=== PATIENT | male | born 1990 | race Caucasian/White ===

== ENCOUNTER 2022-05-06 07:02 | Inpatient (IN) ==
[2022-05-06] MEDS ORDERED: chlordiazePOXIDE HCl 25 MG CAP PO ONE (07:15)
[2022-05-06] MEDS ORDERED: MULTI-VITAMIN INFUSION 10 ML, THIAMINE HCL 100 MG, FOLIC ACID 1 MG in SODIUM CHLORIDE 0... IV ONE (07:15)
[2022-05-06] MEDS ORDERED: SODIUM CHLORIDE 0.9% 1000ML 500 ML IV ONE (07:17)
[2022-05-06] MEDS ORDERED: Ativan IV Alcohol Withdrawal--Active Protocol IV PRN ×2 (07:17→09:54)
[2022-05-06] MEDS ORDERED: LORazepam 2 MG/1 ML VIAL IV PRN ×7 (07:17→09:54)
--- NOTE | 2022-05-06 07:22 | Emergency Department Note ---
Impression & Plan Alcohol withdrawal, HTN (hypertension) ED Provider Note NAME: LICO ROSENBAUM AGE: 31 SEX: M : 1990 ARRIVES VIA: Walk-In INFORMANT: Patient, ED PROVIDER(S): Killian Marrero MD CHIEF COMPLAINT: Alcohol withdrawal, shakiness MEDICAL DECISION MAKING: Patient did present due to concern for tremulousness in the setting of recent alcohol cessation. The patient was ordered IV Valium 5 mg with a second dose to give if he still had tremors. CIWA protocol was initiated banana bag ordered IV fluids ordered in addition to blood work. An IV was established. Patient did have improvement after 10 mg of IV Valium. CIWA protocol still in progress. The patient would like to quit drinking. His buttock shows a normal white count H&H and platelet count kidney function is unremarkable with normal coags. Mild elevation in AST and ALT of 48 and 64 respectively. Vitamin B12 within normal range and folate greater than 22. COVID-negative. I did speak with the on-call hospitalist service CAROL Moss and the patient was admitted by Dr. Preciado. Critical Care: I have personally spent 45 minutes of critical care time in direct management of this patient. This includes bedside care, interpretation of diagnostic studies, and testing, discussion with consultants, patient, and family members, and other require inpatient management activities. This 45 minutes is in excess of all separately billable procedures. Prior /Outside records reviewed: None Differential diagnosis: Alcohol intoxication, toxicologic, infection, hypoglycemia, electrolyte abnormalities, cardiac sources, intracerebral event, neurologic, trauma, as well as other pathologies. Diagnostics, as interpreted by me: ECG: None Cardiac monitoring: An order was placed for continuous cardiac monitoring. The monitor shows a rate of 105 with tachycardic and regular rhythm. Patient was placed on pulse oximetry Medical decision rules: None Imaging studies: See below HPI: Patient presents due to concern for increasing shakiness in the setting of recent alcohol cessation. The patient states that he was drinking 15 beers a day And was doing this for almost 5 days. The patient's last drink was 3 days prior. Patient states he has had associated hallucinations but no reported seizures. Patient does repeatedly binge drink. The patient states that he gone through detox once before back in September 2021. Patient denies any chest pains or shortness of breath but does complain of feeling anxious and tremulous. Patient does use tobacco and marijuana but no other drugs. Patient would like to quit drinking. Patient denies any falls or trauma. Patient is a nausea but without vomiting. PAST MEDICAL HISTORY: See Below PAST SURGICAL HISTORY: See Below SOCIAL HISTORY: See Below HOME MEDICATIONS: See Below ALLERGIES: See Below VITALS: See Below PHYSICAL EXAMINATION: GENERAL: Anxious in appearance, wearing a mask EYE EXAM: Normal conjunctiva. PERRL, no anisocoria and EOM's grossly intact w/o pain. NECK: Supple, no nuchal rigidity, no adenopathy, non-tender. No signs of meningismus. FROM of the neck with good chin to chest and neck extension. No stridor. LUNGS: Clear to auscultation. Normal chest wall mechanics. HEART: Tachycardic and regular, no MRG. ABDOMEN: Abdomen soft, non-tender, normo-active bowel sounds, no masses, no rebound or guarding. BACK: No CVA TTP. SKIN: No rashes and no bruising. UPPER EXTREMITIES: Upper extremities are grossly normal. Bilateral upper extremity tremors noted LOWER EXTREMITIES: Grossly normal, no edema. NEURO EXAM: A&O x3, cranial nerves II-XII grossly intact, normal speech, moves all 4 extremities. Past Med/Surg History Medical History Alcohol abuse HTN (hypertension) Surgical History Hx of tonsillectomy Social History Smoking Status: Former smoker Tobacco Type: Cigarettes Hx Alcohol Use: Yes Hx Substance Use: No Preferred Language: Latvian Feels Safe at Home: Yes Allergies Allergies Allergy/AdvReac Type Severity Reaction Status Date / Time No Known Allergies Allergy Unverified 05/15/14 12:12 Home Meds Home Medications Medication Instructions Recorded Confirmed No Known Home Medications 05/06/22 05/06/22 Results & Data (ED) Vital Signs Vital Signs - 24 hr 05/06/22 07:06 05/06/22 07:09 05/06/22 07:49 Temperature 36.1 C L Temperature Source Temporal Artery Scan Pulse Rate 102 H 73 Pulse Rate [Apical] 70 Pulse Rate from SpO2 Sensor Pulse Rhythm Regular Pulse Rhythm [Apical] Regular Respiratory Rate 36 H 30 H 16 Respiratory Effort / Characteristics Labored Blood Pressure 168/120 H Blood Pressure [Left Arm] 159/120 H Blood Pressure Mean 136 Blood Pressure Mean [Left Arm] 133 Pulse Oximetry 95 95 Oxygen Delivery Method Room Air Room Air Sepsis Recent Fever Within 48 Hours No Sepsis New/Unexplained Change in Mental Status N/A Sepsis Action Taken by Nursing No Action Required 05/06/22 07:30 05/06/22 07:44 05/06/22 07:45 Temperature Temperature Source Pulse Rate 83 72 71 Pulse Rate [Apical] Pulse Rate from SpO2 Sensor 81 72 71 Pulse Rhythm Pulse Rhythm [Apical] Respiratory Rate 18 24 18 Respiratory Effort / Characteristics Blood Pressure 147/115 H 154/121 H 159/120 H Blood Pressure [Left Arm] Blood Pressure Mean 125 132 133 Blood Pressure Mean [Left Arm] Pulse Oximetry 91 95 94 Oxygen Delivery Method Room Air Room Air Room Air Sepsis Recent Fever Within 48 Hours Sepsis New/Unexplained Change in Mental Status Sepsis Action Taken by Nursing 05/06/22 08:00 05/06/22 08:15 Temperature Temperature Source Pulse Rate 67 67 Pulse Rate [Apical] Pulse Rate from SpO2 Sensor 69 68 Pulse Rhythm Pulse Rhythm [Apical] Respiratory Rate 17 22 Respiratory Effort / Characteristics Blood Pressure 145/108 H 141/113 H Blood Pressure [Left Arm] Blood Pressure Mean 120 122 Blood Pressure Mean [Left Arm] Pulse Oximetry 94 95 Oxygen Delivery Method Room Air Room Air Sepsis Recent Fever Within 48 Hours Sepsis New/Unexplained Change in Mental Status Sepsis Action Taken by Intermediate Medications Current Medication List: was personally reviewed by me Laboratory Data Attestation: I reviewed the patient's lab results. 05/06/22 07:15 05/06/22 07:15 Lab Results 05/06/22 05/06/22 05/06/22 Range/Units 07:15 07:15 07:15 WBC 9.49 (4.8-10.8) K/ul RBC 5.04 (4.70-6.10) M/uL Hgb 16.6 (14.0-18.0) g/dl Hct 44.0 (42.0-52.0) % MCV 87.3 (80.0-100.0) fL MCH 32.9 (25.0-34.0) pg MCHC 37.7 H (32.0-36.0) g/dL RDW Std Deviation 36.3 L (36.4-46.3) fL RDW Coeff of Cabrera 11.4 L (11.5-14.5) % Plt Count 226 (130-400) K/uL MPV 10.0 (9.4-12.4) fL Immature Gran % (Auto) 0.3 % Neut % (Auto) 53.6 % Lymph % (Auto) 34.7 % [place] % (Auto) 9.4 % Eos % (Auto) 1.3 % Baso % (Auto) 0.7 % Neut # (Auto) 5.09 (1.40-6.50) K/uL Lymph # (Auto) 3.29 (1.2-3.4) K/uL [place] # (Auto) 0.89 H (0.11-0.59) K/uL Eos # (Auto) 0.12 (0-0.50) K/uL Baso # (Auto) 0.07 (0-0.2) K/uL Immature Gran # (Auto) 0.03 (0.01-0.20) K/uL PT (9.0-12.0) Seconds INR (0.9-1.1) APTT (21.0-31.0) Seconds PTT Ratio Sodium 140 (136-145) mmol/L Potassium 3.5 (3.5-5.1) mmol/L Chloride 103 (98-107) mmol/L Carbon Dioxide 28 (21-32) mmol/L Anion Gap 9 (3-11) BUN 17 (6-23) mg/dl Creatinine 1.21 (0.6-1.4) mg/dl Est Cr Clr Drug Dosing 104.8 ml/min Est GFR ( Amer) 92.6 ml/min Est GFR (Non-Af Amer) 79.9 ml/min BUN/Creatinine Ratio 14.0 (10-20) Glucose 96 (70-99(Fasting)) mg/dl Calcium 9.5 (8.5-10.1) mg/dl Total Bilirubin 0.8 (0.2-1.0) mg/dl AST 48 H (13-39) U/L ALT 64 H (7-52) U/L Alkaline Phosphatase 49 (34-104) U/L Total Protein 8.2 (6.0-8.3) gm/dl Albumin 4.9 (3.4-5.0) gm/dl Globulin 3.3 (2.5-4.0) gm/dl Albumin/Globulin Ratio 1.5 (0.9-2) Vitamin B12 519 (180-914) pg/ml Folate > 22.30 (>5.38) ng/ml 05/06/22 Range/Units 07:15 WBC (4.8-10.8) K/ul RBC (4.70-6.10) M/uL Hgb (14.0-18.0) g/dl Hct (42.0-52.0) % MCV (80.0-100.0) fL MCH (25.0-34.0) pg MCHC (32.0-36.0) g/dL RDW Std Deviation (36.4-46.3) fL RDW Coeff of Cabrera (11.5-14.5) % Plt Count (130-400) K/uL MPV (9.4-12.4) fL Immature Gran % (Auto) % Neut % (Auto) % Lymph % (Auto) % [place] % (Auto) % Eos % (Auto) % Baso % (Auto) % Neut # (Auto) (1.40-6.50) K/uL Lymph # (Auto) (1.2-3.4) K/uL [place] # (Auto) (0.11-0.59) K/uL Eos # (Auto) (0-0.50) K/uL Baso # (Auto) (0-0.2) K/uL Immature Gran # (Auto) (0.01-0.20) K/uL PT 10.6 (9.0-12.0) Seconds INR 1.0 (0.9-1.1) APTT 26.0 (21.0-31.0) Seconds PTT Ratio 0.9 Sodium (136-145) mmol/L Potassium (3.5-5.1) mmol/L Chloride (98-107) mmol/L Carbon Dioxide (21-32) mmol/L Anion Gap (3-11) BUN (6-23) mg/dl Creatinine (0.6-1.4) mg/dl Est Cr Clr Drug Dosing ml/min Est GFR ( Amer) ml/min Est GFR (Non-Af Amer) ml/min BUN/Creatinine Ratio (10-20) Glucose (70-99(Fasting)) mg/dl Calcium (8.5-10.1) mg/dl Total Bilirubin (0.2-1.0) mg/dl AST (13-39) U/L ALT (7-52) U/L Alkaline Phosphatase (34-104) U/L Total Protein (6.0-8.3) gm/dl Albumin (3.4-5.0) gm/dl Globulin (2.5-4.0) gm/dl Albumin/Globulin Ratio (0.9-2) Vitamin B12 (180-914) pg/ml Folate (>5.38) ng/ml Administered Medications Discontinued Medications Chlordiazepoxide HCl (Chlordiazepoxide Hcl 25 Mg Cap) 50 mg PO NOW ONE Stop: 05/06/22 07:16 Last Admin: 05/06/22 07:25 Dose: 50 mg Documented By: MAHNAZ Diazepam (Diazepam 5 Mg/Ml Inj 10ml Vial) 5 mg IV NOW STA Stop: 05/06/22 07:16 Last Admin: 05/06/22 07:18 Dose: 5 mg Documented By: MAHNAZ Diazepam (Diazepam 5 Mg/Ml Inj 10ml Vial) 5 mg IV ONE PRN PRN Reason: Alcohol Withdrawal Stop: 06/05/22 07:14 Last Admin: 05/06/22 07:23 Dose: 5 mg Documented By: MAHNAZ Diazepam (Diazepam 5 Mg/Ml Inj 10ml Vial) Confirm Administered Dose 5 mg .ROUTE .STK-MED ONE Stop: 05/06/22 07:17 Last Admin: 05/06/22 07:19 Dose: Not Given Documented By: MAHNAZ Multivitamins 10 ml/ Thiamine HCl 100 mg/ Folic Acid 1 mg/Sodium Chloride 1,011.2 mls @ 500 mls/hr IV .Q2H2M ONE Stop: 05/06/22 09:16 Last Admin: 05/06/22 07:52 Dose: 500 mls/hr Documented By: GEETHA Sodium Chloride (Nss 1000ml) 500 mls @ 999 mls/hr IV .Q31M ONE Stop: 05/06/22 07:47 Last Infusion: 05/06/22 07:52 Dose: 0 mls/hr Documented By: Admin: 05/06/22 07:25 Dose: 999 mls/hr Documented By: OR Discharge Plan Visit Data Chief Complaint: Alcohol Withdrawal Stated Complaint: GOING THROUGH WITHDRAWL,SHAKES,HALLUCINATIONS ED Provider: Killian Marrero Discharge Problem: Alcohol withdrawal, HTN (hypertension) Patient Disposition: Admitted As Inpatient Discharge Instructions Interventions: ED Discharge Assessment Last Done: 05/06/22 09:55
[2022-05-06 07:52] LABS: Basophils # (auto) 0.07 K/uL (0-0.2); Basophils % (auto) 0.7 %; Eosinophils # (auto) 0.12 K/uL (0-0.50); Eosinophils % (auto) 1.3 %; Hemoglobin 16.6 g/dl (14.0-18.0); Immature Granulocytes # (auto) 0.03 K/uL (0.01-0.20); Immature Granulocytes % (auto) 0.3 %; Lymphocytes # (auto) 3.29 K/uL (1.2-3.4); Lymphocytes % (auto) 34.7 %; Mean Corpuscular Hemoglobin 32.9 pg (25.0-34.0); Mean Corpuscular Hgb Conc 37.7 g/dL (32.0-36.0); Mean Corpuscular Volume 87.3 fL (80.0-100.0); Monocytes # (auto) 0.89 K/uL (0.11-0.59); Monocytes % (auto) 9.4 %; Neutrophils # (auto) 5.09 K/uL (1.40-6.50); Neutrophils % (auto) 53.6 %; Platelet Count 226 K/uL (130-400); RDW Coefficient of Variation 11.4 % (11.5-14.5); RDW Standard Deviation 36.3 fL (36.4-46.3); Red Blood Count 5.04 M/uL (4.70-6.10); White Blood Count 9.49 K/ul (4.8-10.8)
[2022-05-06 07:57] LABS: Albumin Globulin Ratio 1.5 (0.9-2); Albumin Level 4.9 gm/dl (3.4-5.0); Bilirubin,Total 0.8 mg/dl (0.2-1.0); Calcium 9.5 mg/dl (8.5-10.1); Creatinine Clr Calc Pharmacy 104.8 ml/min; Est GFR (African American) 92.6 ml/min; Est GFR (Non-African American) 79.9 ml/min; Globulin 3.3 gm/dl (2.5-4.0); Potassium 3.5 mmol/L (3.5-5.1); Total Protein 8.2 gm/dl (6.0-8.3)
[2022-05-06 08:10] LABS: Partial Thromboplastin Ratio 0.9; Prothrombin Time 10.6 Seconds (9.0-12.0)
[2022-05-06 08:20] LABS: Vitamin B12 519 pg/ml (180-914)
--- NOTE | 2022-05-06 08:51 | History & Physical Report ---
Date of Service May 06, 2022 Assessment & Plan (1) Alcohol withdrawal: Plan: Admit to telemetry Patient presenting from home with reports of tremors and hallucinations. Patient reports a longstanding history of binge drinking. Patient reports he will drink 15 beers/day for 3-5 days in a row and then quit for about one week. Patient reports last binge ended 3 days ago. Upon arrival to the ED, patient was tremulous. Received p.o. Librium and IV Valium with improvement in symptoms. Also received banana bag. Will continue with p.o. thiamine and folic acid from tomorrow. Alcohol withdrawal protocol with gabapentin and as needed Ativan Patient requesting resources for outpatient rehab (2) HTN (hypertension): Plan: Patient reports a history of hypertension, being on metoprolol in the past however it has been greater than 1 year Diastolic BP elevated today, likely secondary to alcohol withdrawal Continue to monitor, provide antihypertensive if needed DVT PROPHYLAXIS SCDs History of Present Illness Chief Complaint: Tremors, Hallucinations Primary Care Provider: NO PCP 31 year old male with PMH HTN (no longer on medication), alcohol abuse, and other problems listed below who presents to the ED for evaluation of tremors and hallucinations. Patient reports a long standing history of binge drinking. Patient reports he will drink 15 beers/day for 3-5 days in a row and then quit for about one week. Patient reports last binge ended 3 days ago. Patient reports he woke up around 5am and was very tremulous and having hallucinations. He then presented to the ED for further evaluation. Patient reports experiencing nausea and vomiting last week while trying to cut back on the drinking. He denies abdominal pain. No chest pain, shortness of breath, or palpitations. Denies lightheadedness, dizziness, diaphoresis, and syncopal events. No other recent illnesses, fever, or chills. Denies urinary symptoms. In the ED, patient received Librium, IV Valium, and banana bag. Patient has had resolution of his symptoms. Allergies Allergy/AdvReac Type Severity Reaction Status Date / Time No Known Allergies Allergy Unverified 05/15/14 12:12 Home Medications Medication Instructions Recorded Confirmed Type No Known Home Medications 05/06/22 05/06/22 History Past Med/Surg History Medical History Alcohol abuse HTN (hypertension) Surgical History Hx of tonsillectomy Social History Smoking Status: Former smoker Tobacco Type: Cigarettes Smoking End Date: 2021; Hx Alcohol Use: Yes Alcohol type: beer Hx Substance Use: No Preferred Language: [place] Communication Ability: Effective Dental Technologist Required: No Beliefs That Will Affect Care: None Current Living Situation: Significant Other Other Information That Helps Us Care for You: No Feels Safe at Home: Yes Safety Concerns: Feels Safe At This Time Assistive Devices: None Review of Systems Review of Systems: ROS per HPI, all other systems reviewed and negative Physical Exam Constitutional: WD/WN, vitals as above Eyes: PERRL, conjunctivae normal, anicteric sclerae ENMT: external ear and nose normal, oropharynx normal Respiratory: normal respiratory effort, lungs clear to auscultation Cardiovascular: Rate/Rhythm: regular rate and regular rhythm Vessels: normal peripheral pulses Extremities: no edema Gastrointestinal (Abdomen): normal bowel sounds, soft, nontender, no hepatosplenomegaly Musculoskeletal: no cyanosis or clubbing, extremities motor strength 5/5 Skin: no rashes, warm and dry Neurologic: PERRL, EOMI, accommodation nl, no face palsy, no dysarthria Motor/Sensory: no tremor Psychiatric: Orientation: alert and oriented x 3 Affect: + flat affect Results & Data Results & Data ([place]) Vital Signs (Past 12 Hours) Vital Signs Temp Pulse Pulse Resp BP BP Pulse Ox 05/06/22 07:45 71 18 159/120 H 94 05/06/22 07:44 72 24 154/121 H 95 05/06/22 07:30 83 18 147/115 H 91 05/06/22 07:49 70 16 159/120 H 95 05/06/22 07:09 73 30 H 95 05/06/22 07:06 36.1 C L 102 H 36 H 168/120 H O2 Del Method 05/06/22 07:45 Room Air 05/06/22 07:44 Room Air 05/06/22 07:30 Room Air 05/06/22 07:49 Room Air 05/06/22 07:09 Room Air 05/06/22 07:06 Laboratory Results Short CBC 05/06/22 Range/Units 07:15 WBC 9.49 (4.8-10.8) K/ul Hgb 16.6 (14.0-18.0) g/dl Hct 44.0 (42.0-52.0) % Plt Count 226 (130-400) K/uL BMP 05/06/22 07:15 Sodium 140 Potassium 3.5 Chloride 103 Carbon Dioxide 28 BUN 17 Creatinine 1.21 Glucose 96 Calcium 9.5 Liver Function 05/06/22 Range/Units 07:15 Total Bilirubin 0.8 (0.2-1.0) mg/dl AST 48 H (13-39) U/L ALT 64 H (7-52) U/L Alkaline Phosphatase 49 (34-104) U/L Albumin 4.9 (3.4-5.0) gm/dl Code Status & VTE Plan VTE Prophylaxis Plan VTE Prophylaxis will be ordered: Yes Supervising Physician Co-Signing Physician Notes Patient seen and examined independently. Chart reviewed. Case discussed with FRANCISCO. Agree with plan above
[2022-05-06] MEDS ORDERED: GABAPENTIN 1200MG ALCOHOL WITHDRAWAL LOAD PO STA (09:54)
[2022-05-06] MEDS ORDERED: ACETAMINOPHEN 325 MG TAB PO PRN (09:54)
[2022-05-06] MEDS ORDERED: GABAPENTIN 600 MG TAB PO ONE (09:54)
[2022-05-06] MEDS: SODIUM CHLORIDE 0.9% 1000ML 1,000 ML IV SCH ×2 (11:45→19:44)
[2022-05-06] MEDS: GABAPENTIN 600 MG TAB PO SCH ×2 (16:05→20:30)
[2022-05-07] MEDS: SODIUM CHLORIDE 0.9% 1000ML 1,000 ML IV SCH ×2 (01:49→07:16)
[2022-05-07] MEDS: GABAPENTIN 600 MG TAB PO SCH ×3 (04:51→21:10)
[2022-05-07 05:32] LABS: Albumin Globulin Ratio 1.3 (0.9-2); Albumin Level 3.7 gm/dl (3.4-5.0); Bilirubin,Total 0.6 mg/dl (0.2-1.0); Calcium 8.1 mg/dl (8.5-10.1); Creatinine Clr Calc Pharmacy 114.8 ml/min; Est GFR (Non-African American) 90.6 ml/min; Globulin 2.8 gm/dl (2.5-4.0); Magnesium 2.3 mg/dl (1.7-2.4); Phosphorus 3.4 mg/dl (2.5-4.9); Potassium 3.8 mmol/L (3.5-5.1); Total Protein 6.5 gm/dl (6.0-8.3)
[2022-05-07 05:55] LABS: Hematocrit (blood only) 39.5 % (42.0-52.0); Hemoglobin 14.2 g/dl (14.0-18.0); Mean Corpuscular Hemoglobin 32.5 pg (25.0-34.0); Mean Corpuscular Hgb Conc 35.9 g/dL (32.0-36.0); Mean Corpuscular Volume 90.4 fL (80.0-100.0); Mean Platelet Volume 9.8 fL (9.4-12.4); Platelet Count 160 K/uL (130-400); RDW Coefficient of Variation 11.6 % (11.5-14.5); RDW Standard Deviation 38.2 fL (36.4-46.3); Red Blood Count 4.37 M/uL (4.70-6.10); White Blood Count 7.15 K/ul (4.8-10.8)
[2022-05-07] MEDS: THIAMINE HCL 100 MG TAB PO SCH (07:20)
[2022-05-07] MEDS: FOLIC ACID 1 MG TAB PO SCH (07:20)
[2022-05-07] MEDS: amLODIPine BESYLATE 5 MG TAB PO SCH (09:32)
--- NOTE | 2022-05-07 16:07 | Hospitalist Progress Note ---
Date of Service May 07, 2022 Assessment & Plan (1) Alcohol withdrawal: Plan: Patient presenting from home with reports of tremors and hallucinations. Patient reports a longstanding history of binge drinking. Patient reports he will drink 15 beers/day for 3-5 days in a row and then quit for about one week. Patient reports last binge ended 3 days ago. Alcohol withdrawal Not interested in rehab placement Continue gabapentin protocol Ativan as needed Continue thiamine, folic acid Outpatient rehab resources provided Counselled to quit drinking (2) HTN (hypertension): Plan: Hypertensive urgency Likely secondary to alcohol withdrawal, chronic hypertension Previously on metoprolol Started on amlodipine, metoprolol Hydralazine as needed Monitor DVT Px SCDs Admission and Anticipated Discharge Date Admission Date: May 06, 2022 Subjective Patient is seen and examined at bedside Hallucinations resolved Tremors much improved States having intermittent palpitations No other complaints Eager to get discharged Denies any chest pain, dyspnea, dizziness, nausea, abdominal pain Review of Systems Review of Systems: All systems reviewed & are unremarkable except as noted in Subjective Physical Exam Physical Exam: Physical Exam: Vitals signs as noted above General Appearance:Moderately built and nourished, no apparent distress Head: normocephalic, Atraumatic Eyes: normal inspection, EOMI Neck: supple, Trachea midline Respiratory/Chest: Normal breath sounds, CTA, No accessory muscle use Cardiovascular: S1, S2, No murmur Abdomen/GI:Soft, Non tender, Bowel sounds present Extremities/Musculoskeletal:normal inspection, no edema Neurologic/Psych:AAOX3, grossly no focal neurological deficits Skin: normal color, warm Results & Data Results & Data ([facility]) Vital Signs (Past 12 Hours) Vital Signs Pulse Pulse Resp BP BP Pulse Ox O2 Del Method 05/07/22 15:28 87 16 167/120 H 05/07/22 15:17 52 L 05/07/22 12:05 52 L 05/07/22 12:04 105 H 14 156/114 H 98 Room Air 05/07/22 07:00 80 17 96 05/07/22 07:00 165/119 H 05/07/22 06:45 82 19 95 05/07/22 07:56 52 L 05/07/22 06:10 52 L 12 96 05/07/22 06:00 55 L 23 95 05/07/22 06:00 160/117 H 05/07/22 05:50 54 L 13 97 05/07/22 05:40 84 14 97 05/07/22 05:30 56 L 9 L 96 05/07/22 05:20 65 17 96 05/07/22 05:10 69 17 95 05/07/22 05:00 60 7 L 95 05/07/22 05:00 151/119 H 05/07/22 04:50 61 17 97 05/07/22 04:40 62 15 95 05/07/22 04:30 57 L 12 95 05/07/22 04:20 60 20 94 05/07/22 04:10 58 L 21 95 Laboratory Results Short CBC 05/07/22 Range/Units 04:45 WBC 7.15 (4.8-10.8) K/ul Hgb 14.2 (14.0-18.0) g/dl Hct 39.5 L (42.0-52.0) % Plt Count 160 (130-400) K/uL BMP 05/07/22 04:45 Sodium 141 Potassium 3.8 Chloride 111 H Carbon Dioxide 27 BUN 12 Creatinine 1.09 Glucose 95 Calcium 8.1 L Liver Function 05/07/22 Range/Units 04:45 Total Bilirubin 0.6 (0.2-1.0) mg/dl AST 32 (13-39) U/L ALT 46 (7-52) U/L Alkaline Phosphatase 32 L (34-104) U/L Albumin 3.7 (3.4-5.0) gm/dl (1) Alcohol withdrawal Complication of substance-induced condition: with delirium Qualified Code(s): F10.931 - Alcohol use, unspecified with withdrawal delirium (2) HTN (hypertension) Hypertension type: unspecified Qualified Code(s): I10 - Essential (primary) hypertension
[2022-05-07] MEDS: hydrALAZINE 10 MG TAB PO PRN (16:18)
[2022-05-07] MEDS: METOPROLOL SUCC 50MG EXT REL TAB PO SCH (16:39)
[2022-05-08 05:11] LABS: Hematocrit (blood only) 40.2 % (42.0-52.0); Hemoglobin 14.5 g/dl (14.0-18.0); Mean Corpuscular Hemoglobin 32.1 pg (25.0-34.0); Mean Corpuscular Hgb Conc 36.1 g/dL (32.0-36.0); Mean Corpuscular Volume 88.9 fL (80.0-100.0); Mean Platelet Volume 9.6 fL (9.4-12.4); Platelet Count 193 K/uL (130-400); RDW Coefficient of Variation 11.6 % (11.5-14.5); RDW Standard Deviation 36.9 fL (36.4-46.3); Red Blood Count 4.52 M/uL (4.70-6.10); White Blood Count 8.24 K/ul (4.8-10.8)
[2022-05-08 05:31] LABS: BUN Creatinine Ratio 16.3 (10-20); Calcium 8.7 mg/dl (8.5-10.1); Creatinine Clr Calc Pharmacy 120.3 ml/min; Est GFR (African American) 111.1 ml/min; Est GFR (Non-African American) 95.9 ml/min; Magnesium 2.1 mg/dl (1.7-2.4); Potassium 3.8 mmol/L (3.5-5.1)
[2022-05-08] MEDS: THIAMINE HCL 100 MG TAB PO SCH (08:03)
[2022-05-08] MEDS: METOPROLOL SUCC 50MG EXT REL TAB PO SCH (08:03)
[2022-05-08] MEDS: FOLIC ACID 1 MG TAB PO SCH (08:04)
[2022-05-08] MEDS: amLODIPine BESYLATE 5 MG TAB PO SCH (08:04)
[2022-05-08] MEDS ORDERED: amLODIPine BESYLATE 5 MG TAB PO ONE (09:02)
[2022-05-08] MEDS ORDERED: GABAPENTIN 600 MG TAB PO SCH (10:00)
[2022-05-08] MEDS ORDERED: LORazepam 0.5 MG TAB PO ONE (12:12)
[2022-05-08] MEDS: hydrALAZINE 10 MG TAB PO PRN (12:19)
--- NOTE | 2022-05-08 13:22 | Hospitalist Progress Note ---
Date of Service May 08, 2022 Assessment & Plan (1) Alcohol withdrawal: Plan: Patient presenting from home with reports of tremors and hallucinations. Patient reports a longstanding history of binge drinking. Patient reports he will drink 15 beers/day for 3-5 days in a row and then quit for about one week. Patient reports last binge ended 3 days ago. Alcohol withdrawal Not interested in rehab placement On gabapentin protocol Ativan as needed Continue thiamine, folic acid Outpatient rehab resources provided Counselled to quit drinking Plan to discharge home today (2) HTN (hypertension): Plan: Hypertensive urgency Likely secondary to alcohol withdrawal, chronic hypertension Previously on metoprolol Continue amlodipine, metoprolol Hydralazine as needed Monitor DVT Px SCDs Admission and Anticipated Discharge Date Admission Date: May 06, 2022 Subjective Patient is seen and examined at bedside Feels well today No recurrence of Hallucinations Tremors improved as well Eager to get discharged Denies any chest pain, dyspnea, dizziness, nausea, abdominal pain BP better Plan to discharge home today Review of Systems Review of Systems: All systems reviewed & are unremarkable except as noted in Subjective Physical Exam Physical Exam: Physical Exam: Vitals signs as noted above General Appearance:Moderately built and nourished, no apparent distress Head: normocephalic, Atraumatic Eyes: normal inspection, EOMI Neck: supple, Trachea midline Respiratory/Chest: Normal breath sounds, CTA, No accessory muscle use Cardiovascular: S1, S2, No murmur Abdomen/GI:Soft, Non tender, Bowel sounds present Extremities/Musculoskeletal:normal inspection, no edema Neurologic/Psych:AAOX3, grossly no focal neurological deficits Skin: normal color, warm Results & Data Results & Data ([facility]) Vital Signs (Past 12 Hours) Vital Signs Temp Pulse Pulse Resp BP Pulse Ox O2 Del Method 05/08/22 12:00 36.6 C 65 20 167/110 H 97 Room Air 05/08/22 07:20 58 L 05/08/22 07:46 36.8 C 61 14 149/110 H 98 Room Air 05/08/22 02:11 57 L Laboratory Results Short CBC 05/08/22 Range/Units 05:01 WBC 8.24 (4.8-10.8) K/ul Hgb 14.5 (14.0-18.0) g/dl Hct 40.2 L (42.0-52.0) % Plt Count 193 (130-400) K/uL BMP 05/08/22 05:01 Sodium 143 Potassium 3.8 Chloride 111 H Carbon Dioxide 27 BUN 17 Creatinine 1.04 Glucose 94 Calcium 8.7 (1) Alcohol withdrawal Complication of substance-induced condition: with delirium Qualified Code(s): F10.931 - Alcohol use, unspecified with withdrawal delirium (2) HTN (hypertension) Hypertension type: unspecified Qualified Code(s): I10 - Essential (primary) hypertension
--- NOTE | 2022-05-08 13:42 | Discharge Summary ---
Date of Service May 08, 2022 Admission HPI Per Admitting Provider 31 year old male with PMH HTN (no longer on medication), alcohol abuse, and other problems listed below who presents to the ED for evaluation of tremors and hallucinations. Patient reports a long standing history of binge drinking. Patient reports he will drink 15 beers/day for 3-5 days in a row and then quit for about one week. Patient reports last binge ended 3 days ago. Patient reports he woke up around 5am and was very tremulous and having hallucinations. He then presented to the ED for further evaluation. Patient reports experiencing nausea and vomiting last week while trying to cut back on the drinking. He denies abdominal pain. No chest pain, shortness of breath, or palpitations. Denies lightheadedness, dizziness, diaphoresis, and syncopal events. No other recent illnesses, fever, or chills. Denies urinary symptoms. In the ED, patient received Librium, IV Valium, and banana bag. Patient has had resolution of his symptoms. Admission Exam Per Admitting Provider Physical Exam Constitutional: WD/WN, vitals as above Eyes: PERRL, conjunctivae normal, anicteric sclerae ENMT: external ear and nose normal, oropharynx normal Respiratory: normal respiratory effort, lungs clear to auscultation Cardiovascular: Rate/Rhythm: regular rate and regular rhythm Vessels: normal peripheral pulses Extremities: no edema Gastrointestinal (Abdomen): normal bowel sounds, soft, nontender, no hepatosplenomegaly Musculoskeletal: no cyanosis or clubbing, extremities motor strength 5/5 Skin: no rashes, warm and dry Neurologic: PERRL, EOMI, accommodation nl, no face palsy, no dysarthria Motor/Sensory: no tremor Psychiatric: Orientation: alert and oriented x 3 Affect: + flat affect Principal Diagnosis Alcohol withdrawal Hypertensive urgency Discharge Data Allergies Allergy/AdvReac Type Severity Reaction Status Date / Time No Known Allergies Allergy Unverified 05/15/14 12:12 Consultations 05/06/22 08:24 ED Decision to Admit Stat Procedures Performed Laboratory Results WBC 8.24 K/ul (4.8-10.8) 05/08/22 05:01 RBC 4.52 M/uL (4.70-6.10) L 05/08/22 05:01 Hgb 14.5 g/dl (14.0-18.0) 05/08/22 05:01 Hct 40.2 % (42.0-52.0) L 05/08/22 05:01 MCV 88.9 fL (80.0-100.0) 05/08/22 05:01 MCH 32.1 pg (25.0-34.0) 05/08/22 05:01 MCHC 36.1 g/dL (32.0-36.0) H 05/08/22 05:01 RDW Std Deviation 36.9 fL (36.4-46.3) 05/08/22 05:01 RDW Coeff of Cabrera 11.6 % (11.5-14.5) 05/08/22 05:01 Plt Count 193 K/uL (130-400) 05/08/22 05:01 MPV 9.6 fL (9.4-12.4) 05/08/22 05:01 Immature Gran % (Auto) 0.3 % 05/06/22 07:15 Neut % (Auto) 53.6 % 05/06/22 07:15 Lymph % (Auto) 34.7 % 05/06/22 07:15 Swisher % (Auto) 9.4 % 05/06/22 07:15 Eos % (Auto) 1.3 % 05/06/22 07:15 Baso % (Auto) 0.7 % 05/06/22 07:15 Neut # (Auto) 5.09 K/uL (1.40-6.50) 05/06/22 07:15 Lymph # (Auto) 3.29 K/uL (1.2-3.4) 05/06/22 07:15 Swisher # (Auto) 0.89 K/uL (0.11-0.59) H 05/06/22 07:15 Eos # (Auto) 0.12 K/uL (0-0.50) 05/06/22 07:15 Baso # (Auto) 0.07 K/uL (0-0.2) 05/06/22 07:15 Immature Gran # (Auto) 0.03 K/uL (0.01-0.20) 05/06/22 07:15 PT 10.6 Seconds (9.0-12.0) 05/06/22 07:15 INR 1.0 (0.9-1.1) 05/06/22 07:15 APTT 26.0 Seconds (21.0-31.0) 05/06/22 07:15 PTT Ratio 0.9 05/06/22 07:15 Sodium 143 mmol/L (136-145) 05/08/22 05:01 Potassium 3.8 mmol/L (3.5-5.1) 05/08/22 05:01 Chloride 111 mmol/L (98-107) H 05/08/22 05:01 Carbon Dioxide 27 mmol/L (21-32) 05/08/22 05:01 Anion Gap 5 (3-11) 05/08/22 05:01 BUN 17 mg/dl (6-23) 05/08/22 05:01 Creatinine 1.04 mg/dl (0.6-1.4) 05/08/22 05:01 Est Cr Clr Drug Dosing 120.3 ml/min 05/08/22 05:01 Est GFR ( Amer) 111.1 ml/min 05/08/22 05:01 Est GFR (Non-Af Amer) 95.9 ml/min 05/08/22 05:01 BUN/Creatinine Ratio 16.3 (10-20) 05/08/22 05:01 Glucose 94 mg/dl (70-99(Fasting)) 05/08/22 05:01 Calcium 8.7 mg/dl (8.5-10.1) 05/08/22 05:01 Phosphorus 3.4 mg/dl (2.5-4.9) 05/07/22 04:45 Magnesium 2.1 mg/dl (1.7-2.4) 05/08/22 05:01 Total Bilirubin 0.6 mg/dl (0.2-1.0) 05/07/22 04:45 AST 32 U/L (13-39) 05/07/22 04:45 ALT 46 U/L (7-52) 05/07/22 04:45 Alkaline Phosphatase 32 U/L (34-104) L 05/07/22 04:45 Total Protein 6.5 gm/dl (6.0-8.3) D 05/07/22 04:45 Albumin 3.7 gm/dl (3.4-5.0) 05/07/22 04:45 Globulin 2.8 gm/dl (2.5-4.0) 05/07/22 04:45 Albumin/Globulin Ratio 1.3 (0.9-2) 05/07/22 04:45 Vitamin B12 519 pg/ml (180-914) 05/06/22 07:15 Folate > 22.30 ng/ml (>5.38) 05/06/22 07:15 SARS-CoV-2, RNA, NAAT NEGATIVE (NEGATIVE) 05/06/22 Unknown Hospital Course (1) Alcohol withdrawal: Patient presenting from home with reports of tremors and hallucinations. Patient reports a longstanding history of binge drinking. Patient reports he will drink 15 beers/day for 3-5 days in a row and then quit for about one week. Patient reports last binge ended 3 days ago. Alcohol withdrawal Not interested in rehab placement On gabapentin protocol Ativan as needed Continue thiamine, folic acid Outpatient rehab resources provided Counselled to quit drinking Plan to discharge home today (2) HTN (hypertension): Hypertensive urgency Likely secondary to alcohol withdrawal, chronic hypertension Previously on metoprolol Continue amlodipine, metoprolol Hydralazine as needed Monitor DVT Px SCDs Total Time Total Time Spent Total Time Spent (In Minutes): 49 minutes Discharge Plan Discharge Items Patient Disposition: Home - Self-Care Reason For Visit: ETOH WITHDRAWAL Discharge Diagnosis: Alcohol withdrawal Hypertensive urgency Activity: Per Instructions section Exercise/Sports: Gradually increase as tolerated Non-emergency contact: Primary Care Provider Call non-emergency contact if: you have any medication questions, your symptoms worsen, your pain is concerning for you and you have a fever Follow-up/Referrals: Luis Valencia MD [Outside Practitioners] - (Date & Time 05/12/2022 11:20 AM Provider Luis Valencia MD Department Family Medicine [facility] ) Diet: Heart Healthy Addtl Attending Provider Instructions: Follow up with your PCP on 05/12/2022 11:20 AM at [facility]. --- Monitor your blood pressure regularly at home. Discuss with your physician for further adjustment of medications as needed. Seek immediate medical attention if your symptoms reoccur or worsen Please take all medications as instructed on discharge list below. Please call if you have any questions or problems. You can reach a [facility] hospitalist on duty at [facility] 24 hours a day by calling [phone] Pending Studies at Discharge: No Stand-Alone Forms: My [facility], Smoking Cessation Medications and DC Order Prescriptions: New metoprolol succinate 50 mg Tablet Extended Release 24 Hr 50 mg PO QAM Qty: 30 0RF thiamine HCl (vitamin B1) 100 mg Tablet 100 mg PO QAM Qty: 30 0RF amlodipine [Norvasc] 5 mg Tablet 5 mg PO QAM Qty: 30 0RF folic acid 1 mg Tablet 1 mg PO QAM Qty: 30 0RF Discharge Orders: Discharge Order (Routine); Ordered 05/08/22 Ordered By: Alonso Woods Admission Data Admit Date/Time: 05/06/22 08:27 Attending Provider: Alonso Woods Admit Provider: Lior Preciado Primary Care Provider: PCP,NO Other Providers: Lior Preciado
[2022-05-09] MEDS ORDERED: amLODIPine BESYLATE 5 MG TAB PO SCH (09:00)
[2022-05-09] MEDS ORDERED: GABAPENTIN 600 MG TAB PO SCH (22:00)
== END 2022-05-08 14:08 | disposition home or self-care (01) | DRG 897 ==
LOC: ED 07:02 → EDINP 08:27 → SUATTDRO 08:27 → 1E 09:55

== ENCOUNTER 2022-07-21 07:48 | Inpatient (IN) ==
[2022-07-21] MEDS ORDERED: CEROVITE ADV FORMULA TAB PO STA (07:56)
[2022-07-21] MEDS ORDERED: LORazepam 2 MG/1 ML VIAL IV PRN ×2 (07:58)
[2022-07-21] MEDS ORDERED: Ativan IV Alcohol Withdrawal--Active Protocol IV PRN (07:58)
[2022-07-21] MEDS ORDERED: SODIUM CHLORIDE 0.9% 1000ML 1,000 ML IV SCH (08:00)
[2022-07-21] MEDS ORDERED: THIAMINE HCL 100 MG, FOLIC ACID 1 MG in SODIUM CHLORIDE 0.9% 1000ML 1,000 ML IV SCH (08:00)
[2022-07-21] MEDS ORDERED: GABAPENTIN 600 MG TAB PO ONE (08:31)
[2022-07-21] MEDS ORDERED: GABAPENTIN 1200MG ALCOHOL WITHDRAWAL LOAD PO STA (08:31)
--- NOTE | 2022-07-21 08:33 | XRay Report ---
XR chest 1V portable HISTORY: weakness COMPARISON: None. FINDINGS: Small linear density left lung base favor scarring or subsegmental atelectasis. Otherwise, lungs are clear. The heart is normal in size. No pleural effusions. No pneumothorax. There are low sonal ng volumes. IMPRESSION: No acute process. ACT 112: Negative or not required by law. Electronically signed by: Kaden Luna M.D. 07/21/2022 8:32 AM
[2022-07-21] MEDS: LORazepam 2 MG/1 ML VIAL IV PRN ×2 (08:36→23:16)
[2022-07-21 08:59] LABS: Basophils # (auto) 0.06 K/uL (0-0.2); Eosinophils # (auto) 0.07 K/uL (0-0.50); Eosinophils % (auto) 1.2 %; Hematocrit (blood only) 45.4 % (42.0-52.0); Hemoglobin 16.9 g/dl (14.0-18.0); Immature Granulocytes # (auto) 0.01 K/uL (0.01-0.20); Immature Granulocytes % (auto) 0.2 %; Lymphocytes % (auto) 28.4 %; Mean Corpuscular Hemoglobin 31.7 pg (25.0-34.0); Mean Corpuscular Hgb Conc 37.2 g/dL (32.0-36.0); Mean Corpuscular Volume 85.2 fL (80.0-100.0); Mean Platelet Volume 9.7 fL (9.4-12.4); Monocytes # (auto) 0.78 K/uL (0.11-0.59); Neutrophils # (auto) 3.36 K/uL (1.40-6.50); Neutrophils % (auto) 56.2 %; Platelet Count 254 K/uL (130-400); RDW Coefficient of Variation 11.4 % (11.5-14.5); RDW Standard Deviation 35.1 fL (36.4-46.3); Red Blood Count 5.33 M/uL (4.70-6.10); White Blood Count 5.98 K/ul (4.8-10.8)
[2022-07-21 09:03] LABS: Albumin Globulin Ratio 1.6 (0.9-2); Albumin Level 4.9 gm/dl (3.4-5.0); BUN Creatinine Ratio 15.8 (10-20); Bilirubin,Total 0.8 mg/dl (0.2-1.0); Calcium 9.5 mg/dl (8.6-10.3); Creatinine Clr Calc Pharmacy 134.6 ml/min; Globulin 3.1 gm/dl (2.5-4.0); Magnesium 2.3 mg/dl (1.7-2.4); Potassium 4.6 mmol/L (3.5-5.1)
--- NOTE | 2022-07-21 09:17 | Emergency Department Note ---
ED Provider Note CHIEF COMPLAINT: Alcohol withdrawal HISTORY OF PRESENT ILLNESS: This 31-year-old male patient with a longstanding history of alcohol dependency, previous admission to rehab and most recently a 6 weeks sober period presents to the emergency department with complaints of alcohol withdrawal. The patient states he was drinking 2 cases of beer daily for the last 6 weeks. He "may have had some hard liquor in there" and states his last drink was last evening. He states he has been trying to cut the beer consumption down and went to 1 case yesterday. He began to withdrawal last evening and did have a beer without any benefit. He woke up this morning and felt anxious with tremors diffusely. He states he has been admitted in the past but denies any seizure history. He believes he may have a history of hypertension but states he is only ever had it checked when he has been withdrawing from alcohol. He took metoprolol 50 mg yesterday but no benzodiazepines. REVIEW OF SYSTEMS: A review of systems was performed with positives and pe rtinent negatives listed in the history of present illness. 10 systems were reviewed and are otherwise negative. ALLERGIES: see below MEDICATIONS: see below PMH: Alcohol dependency, alcohol withdrawal SOCIAL HISTORY: see below DDx: Alcohol withdrawal, electrolyte disturbance, seizure, hallucinations, DTs, dehydration amongst other PHYSICAL EXAM: Vital signs reviewed. Noted to be hypertensive General: Well-appearing 31-year-old male, in no significant distress. HEENT: No scleral icterus, PERRLA, neck supple. Dry mucous membranes Cardiovascular: Regular rate and rhythm, no extra sounds. Pulmonary: Clear to auscultation bilaterally, normal work of breathing. Abdomen: Soft, nontender, nondistended, positive bowel sounds. Musculoskeletal: Atraumatic, no peripheral edema. Neurologic: Patient awake alert and oriented x 3, speech is clear. Diffuse upper extremity tremors. Skin: Warm, dry, no rash EMERGENCY DEPARTMENT COURSE/MDM: [] MONITORING: An order for cardiac monitoring was placed and the patient is noted to be in a normal sinus rhythm at 68 beats per minute. EKG: To my interpretation reveals a normal sinus rhythm at 80 bpm. QTc is 445. No PVC, no PAC. No significant change from previous. No significant change from previous dated May 15, 2014. DISPOSITION: Past Med/Surg History Medical History Alcohol abuse HTN (hypertension) Surgical History Hx of tonsillectomy Social History Smoking Status: Former smoker Tobacco Type: Cigarettes Hx Alcohol Use: Yes Alcohol type: beer Hx Substance Use: Yes Preferred Language: Tam[place] Communication Ability: Effective Clothes Drier Repairer Required: No Beliefs That Will Affect Care: None Current Living Situation: Significant Other Feels Safe at Home: Yes Assistive Devices: None Allergies Allergies Allergy/AdvReac Type Severity Reaction Status Date / Time No Known Allergies Allergy Unverified 05/13/22 11:08 Home Meds Previous Rx's Medication Instructions Recorded amlodipine 5 mg tablet (Norvasc) 5 mg PO QAM #30 tabs 05/08/22 folic acid 1 mg tablet 1 mg PO QAM #30 tabs 05/08/22 metoprolol succinate 50 mg 50 mg PO QAM #30 tabs 05/08/22 tablet,extended release 24 hr thiamine HCl (vitamin B1) 100 mg 100 mg PO QAM #30 tabs 05/08/22 tablet Results & Data (ED) Vital Signs Vital Signs - 24 hr 07/21/22 07:51 07/21/22 08:39 07/21/22 08:44 Temperature 36.7 C Temperature Source Temporal Artery Scan Pulse Rate 82 76 Pulse Rate [Apical] 65 Pulse Rhythm Respiratory Rate 18 16 Blood Pressure 178/125 H Blood Pressure [Left Arm] 185/131 H Blood Pressure Mean 142 Blood Pressure Mean [Left Arm] 149 Pulse Oximetry 99 96 Oxygen Delivery Method Room Air Room Air Sepsis Recent Fever Within 48 Hours No Sepsis New/Unexplained Change in Mental Status No Sepsis Action Taken by Nursing No Action Required 07/21/22 08:45 Temperature Temperature Source Pulse Rate 68 Pulse Rate [Apical] Pulse Rhythm Regular Respiratory Rate 16 Blood Pressure Blood Pressure [Left Arm] Blood Pressure Mean Blood Pressure Mean [Left Arm] Pulse Oximetry 96 Oxygen Delivery Method Room Air Sepsis Recent Fever Within 48 Hours Sepsis New/Unexplained Change in Mental Status Sepsis Action Taken by Nursing Laboratory Data 07/21/22 08:25 07/21/22 08:25 Lab Results 07/21/22 07/21/22 07/21/22 Range/Units 08:25 08:25 08:25 WBC 5.98 (4.8-10.8) K/ul RBC 5.33 (4.70-6.10) M/uL Hgb 16.9 (14.0-18.0) g/dl Hct 45.4 (42.0-52.0) % MCV 85.2 (80.0-100.0) fL MCH 31.7 (25.0-34.0) pg MCHC 37.2 H (32.0-36.0) g/dL RDW Std Deviation 35.1 L (36.4-46.3) fL RDW Coeff of Cabrera 11.4 L (11.5-14.5) % Plt Count 254 (130-400) K/uL MPV 9.7 (9.4-12.4) fL Immature Gran % (Auto) 0.2 % Neut % (Auto) 56.2 % Lymph % (Auto) 28.4 % [place] % (Auto) 13.0 % Eos % (Auto) 1.2 % Baso % (Auto) 1.0 % Neut # (Auto) 3.36 (1.40-6.50) K/uL Lymph # (Auto) 1.70 (1.2-3.4) K/uL [place] # (Auto) 0.78 H (0.11-0.59) K/uL Eos # (Auto) 0.07 (0-0.50) K/uL Baso # (Auto) 0.06 (0-0.2) K/uL Immature Gran # (Auto) 0.01 (0.01-0.20) K/uL Sodium 139 (136-145) mmol/L Potassium 4.6 (3.5-5.1) mmol/L Chloride 104 (98-107) mmol/L Carbon Dioxide 29 (21-32) mmol/L Anion Gap 6 (3-11) BUN 15 (6-23) mg/dl Creatinine 0.95 (0.6-1.4) mg/dl Est Cr Clr Drug Dosing 134.6 ml/min Est GFR ( Amer) 124.0 ml/min Est GFR (Non-Af Amer) 107.0 ml/min BUN/Creatinine Ratio 15.8 (10-20) Glucose 72 (70-99(Fasting)) mg/dl Calcium 9.5 (8.6-10.3) mg/dl Magnesium 2.3 (1.7-2.4) mg/dl Total Bilirubin 0.8 (0.2-1.0) mg/dl AST 79 H (13-39) U/L ALT 109 H (7-52) U/L Alkaline Phosphatase 38 (34-104) U/L Total Protein 8.0 (6.0-8.3) gm/dl Albumin 4.9 (3.4-5.0) gm/dl Globulin 3.1 (2.5-4.0) gm/dl Albumin/Globulin Ratio 1.6 (0.9-2) TSH 2.283 (0.300-4.500) uIu/ml SARS-CoV-2, RNA, NAAT (NEGATIVE) 07/21/22 Range/Units 08:28 WBC (4.8-10.8) K/ul RBC (4.70-6.10) M/uL Hgb (14.0-18.0) g/dl Hct (42.0-52.0) % MCV (80.0-100.0) fL MCH (25.0-34.0) pg MCHC (32.0-36.0) g/dL RDW Std Deviation (36.4-46.3) fL RDW Coeff of Cabrera (11.5-14.5) % Plt Count (130-400) K/uL MPV (9.4-12.4) fL Immature Gran % (Auto) % Neut % (Auto) % Lymph % (Auto) % [place] % (Auto) % Eos % (Auto) % Baso % (Auto) % Neut # (Auto) (1.40-6.50) K/uL Lymph # (Auto) (1.2-3.4) K/uL [place] # (Auto) (0.11-0.59) K/uL Eos # (Auto) (0-0.50) K/uL Baso # (Auto) (0-0.2) K/uL Immature Gran # (Auto) (0.01-0.20) K/uL Sodium (136-145) mmol/L Potassium (3.5-5.1) mmol/L Chloride (98-107) mmol/L Carbon Dioxide (21-32) mmol/L Anion Gap (3-11) BUN (6-23) mg/dl Creatinine (0.6-1.4) mg/dl Est Cr Clr Drug Dosing ml/min Est GFR ( Amer) ml/min Est GFR (Non-Af Amer) ml/min BUN/Creatinine Ratio (10-20) Glucose (70-99(Fasting)) mg/dl Calcium (8.6-10.3) mg/dl Magnesium (1.7-2.4) mg/dl Total Bilirubin (0.2-1.0) mg/dl AST (13-39) U/L ALT (7-52) U/L Alkaline Phosphatase (34-104) U/L Total Protein (6.0-8.3) gm/dl Albumin (3.4-5.0) gm/dl Globulin (2.5-4.0) gm/dl Albumin/Globulin Ratio (0.9-2) TSH (0.300-4.500) uIu/ml SARS-CoV-2, RNA, NAAT NEGATIVE (NEGATIVE) Administered Medications Thiamine HCl 100 mg/ Folic (Acid 1 mg/ Sodium Chloride) 1,001.2 mls @ 500 mls/hr IV .Q2H1M CHRISTINA; Protocol Stop: 07/21/22 10:00 Last Admin: 07/21/22 08:36 Dose: 500 mls/hr Documented By: GEETHA Lorazepam (Lorazepam 2 Mg/1 Ml Vial) 1 mg IV UD PRN; Protocol PRN Reason: EtOH Withdrawal AWSS Score 6,7 Stop: 08/20/22 07:57 Last Admin: 07/21/22 08:36 Dose: 1 mg Documented By: GEETHA Discontinued Medications Gabapentin (Gabapentin 600 Mg Tab) 1,200 mg PO NOW ONE Stop: 07/21/22 08:32 Last Admin: 07/21/22 08:51 Dose: 1,200 mg Documented By: EGETHA Sodium Chloride (Nss 1000ml) 1,000 mls @ 999 mls/hr IV .Q1H1M CHRISTINA Stop: 07/21/22 09:00 Last Admin: 07/21/22 08:36 Dose: 999 mls/hr Documented By: GEETHA Multivitamins/Minerals (Cerovite Adv Formula Tab) 1 tab PO ONE STA Stop: 07/21/22 07:57 Last Admin: 07/21/22 08:51 Dose: 1 tab Documented By: KV Imaging Data Radiologist's Impression: Chest X-Ray 07/21/22 07:56 XR chest 1V portable HISTORY: weakness COMPARISON: None. FINDINGS: Small linear density left lung base favor scarring or subsegmental atelectasis. Otherwise, lungs are clear. The heart is normal in size. No pleural effusions. No pneumothorax. There are low lung volumes. IMPRESSION: No acute process. ACT 112: Negative or not required by law. Electronically signed by: Kaden Luna M.D. 07/21/2022 8:32 AM Discharge Plan Visit Data Chief Complaint: Alcohol Withdrawal Stated Complaint: ALCOHOL WITHDRAWL ED Provider: Jeana Denton Forms Stand Alone Forms: [facility], Suicide Prevention Resources Prescriptions Prescriptions: No Action metoprolol succinate 50 mg Tablet Extended Release 24 Hr 50 mg PO QAM Qty: 30 0RF thiamine HCl (vitamin B1) 100 mg Tablet 100 mg PO QAM Qty: 30 0RF amlodipine [Norvasc] 5 mg Tablet 5 mg PO QAM Qty: 30 0RF folic acid 1 mg Tablet 1 mg PO QAM Qty: 30 0RF Referrals Referrals: Luis Valencia MD [Primary Care Provider] -
[2022-07-21] MEDS ORDERED: hydrALAZINE HCL 20 MG/ML VIAL IV STA (10:12)
[2022-07-21] MEDS ORDERED: METOPROLOL SUCC 50MG EXT REL TAB PO STA (11:13)
[2022-07-21] MEDS ORDERED: amLODIPine BESYLATE 5 MG TAB PO ONE ×3 (11:15→20:05)
--- NOTE | 2022-07-21 11:18 | History & Physical Report ---
Date of Service July 21, 2022 Assessment & Plan (1) Alcohol withdrawal: Plan: Admit to [facility] with telemetry Patient presenting from home with reports of alcohol withdrawal symptoms. Admitted 04/2022 for alcohol withdrawal. Patient reports remaining sober for ab out 6 weeks. Started with drinking a few beers and quickly increased to drinking 20 beers per day. Patient attempted to cut down on his drinking over the past week by a few beers per day. Drink 10 beers yesterday. Alcohol withdrawal protocol with gabapentin and as needed Ativan Thiamine, folic acid, multivitamin Patient wishes to establish with outpatient rehab program and AA at discharge. (2) Hypertensive urgency: Plan: Presenting BP 185/131 Likely secondary to alcohol withdrawal Patient discharged on amlodipine and metoprolol after admission in April. Patient reports he stopped taking both medications about 2 weeks after discharge. Reports BP normalized. No improvement in BP after IV hydralazine 10 mg. Will give labetalol IV 10 mg and amlodipine 5 mg p.o. Resume metoprolol pending heart rate response to labetalol. (3) Elevated LFTs: Plan: T. bili 0.8, AST 79, ALT 109 Due to chronic alcohol use Follow LFTs DVT PROPHYLAXIS SCDs Patient seen in collaboration with Dr. Mccabe I spent a total of 75 minutes coordinating, documenting, and providing care for this patient excluding time spent in the performance of separately billed services. This included personally reviewing all current laboratories and imaging studies, medication reconciliation, outpatient chart review, and discussion with specialists. History of Present Illness Chief Complaint: Alcohol withdrawal Primary Care Provider: Luis Valencia MD 31-year-old male with PMH alcohol abuse, HTN, and other problems listed below who presents to the ED for evaluation of alcohol withdrawal. History obtained from patient and review of outpatient PCP records. Patient admitted 04/2022 for alcohol withdrawal. Patient reports remaining sober until 1 month ago. Patient reports he started drinking a few beers and quickly increased to drinking 20 beers per day. Patient reports trying to cut down by a couple of beers per day over the past week. Last night, patient reports he started to feel very anxious, tremulous, flushed, visual hallucinations. Over the past 2 days, he has also had some nausea and vomiting. Denies hematemesis and coffee-ground emesis. No chest pain or shortness of breath. Denies lightheadedness, dizziness, diaphoresis, syncopal events. No other recent illnesses, fevers, chills. Patient denies urinary symptoms. Previously on amlodipine and metoprolol for HTN however patient reports he stopped taking these after being sober for 2 weeks as his blood pressure improved. In the ED, patient is found to be significantly hypertensive with BP 185/131. Labs show elevated AST 79, ALT 109. Alcohol level negative. Patient was given gabapentin, multivitamin, banana bag, IVF, IV lorazepam. Allergies Allergy/AdvReac Type Severity Reaction Status Date / Time No Known Allergies Allergy Unverified 05/13/22 11:08 Home Medications Medication Instructions Recorded Confirmed Type metoprolol succinate 50 mg 50 mg PO QAM #30 tabs 05/08/22 07/21/22 Rx tablet,extended release 24 hr amlodipine 5 mg tablet 5 mg PO DAILY 07/21/22 07/21/22 History Past Med/Surg History Medical History Alcohol abuse HTN (hypertension) Surgical History Hx of tonsillectomy Social History Smoking Status: Former smoker Tobacco Type: Cigarettes Hx Alcohol Use: Yes Alcohol type: beer Hx Substance Use: Yes Preferred Language: [place] Citizen Communication Ability: Effective Dust Puller Required: No Beliefs That Will Affect Care: None Current Living Situation: Significant Other Feels Safe at Home: Yes Assistive Devices: None Review of Systems Review of Systems: ROS per HPI, all other systems reviewed and negative Physical Exam Constitutional: WD/WN, vitals as above Eyes: PERRL, conjunctivae normal, anicteric sclerae ENMT: external ear and nose normal, oropharynx normal Respiratory: normal respiratory effort, lungs clear to auscultation Cardiovascular: Rate/Rhythm: regular rate and regular rhythm Vessels: normal peripheral pulses Extremities: no edema Gastrointestinal (Abdomen): normal bowel sounds, soft, nontender, no hepatospl enomegaly Musculoskeletal: no cyanosis or clubbing, extremities motor strength 5/5 Skin: no rashes, warm and dry Neurologic: PERRL, EOMI, accommodation nl, no face palsy, no dysarthria Motor/Sensory: + tremor Psychiatric: A+Ox3, euthymic affect Results & Data Results & Data Vital Signs (Past 12 Hours) Vital Signs Temp Pulse Pulse Resp BP BP Pulse Ox 07/21/22 11:06 69 15 199/142 H 98 07/21/22 08:45 68 16 96 07/21/22 08:44 65 16 185/131 H 96 07/21/22 08:39 76 07/21/22 07:51 36.7 C 82 18 178/125 H 99 O2 Del Method 07/21/22 11:06 Room Air 07/21/22 08:45 Room Air 07/21/22 08:44 Room Air 07/21/22 08:39 07/21/22 07:51 Room Air Laboratory Results Short CBC 07/21/22 Range/Units 08:25 WBC 5.98 (4.8-10.8) K/ul Hgb 16.9 (14.0-18.0) g/dl Hct 45.4 (42.0-52.0) % Plt Count 254 (130-400) K/uL BMP 07/21/22 08:25 Sodium 139 Potassium 4.6 Chloride 104 Carbon Dioxide 29 BUN 15 Creatinine 0.95 Glucose 72 Calcium 9.5 Liver Function 07/21/22 Range/Units 08:25 Total Bilirubin 0.8 (0.2-1.0) mg/dl AST 79 H (13-39) U/L ALT 109 H (7-52) U/L Alkaline Phosphatase 38 (34-104) U/L Albumin 4.9 (3.4-5.0) gm/dl Diagnostic Findings Chest X-Ray 07/21/22 07:56 XR chest 1V portable HISTORY: weakness COMPARISON: None. FINDINGS: Small linear density left lung base favor scarring or subsegmental atelectasis. Otherwise, lungs are clear. The heart is normal in size. No pleural effusions. No pneumothorax. There are low lung volumes. IMPRESSION: No acute process. ACT 112: Negative or not required by law. Electronically signed by: Kaden Luna M.D. 07/21/2022 8:32 AM Code Status & VTE Plan VTE Prophylaxis Plan VTE Prophylaxis will be ordered: Yes Supervising Physician Co-Signing Physician Notes Pt was seen and examined. Agreed with Ele MEDINA exam, assessment and plan. 31-year-old male with PMH alcohol abuse, HTN presents to the ED for evaluation of alcohol withdrawal. Pt was admitted 04/2022 for alcohol withdrawal. Pt said that he has been drinking about 20 beers daily, But said that last week he tries to cut down by couple beers per day. He said that last night he became very anxious, tremulous, flushed, visual hallucinations. Denies any chest pain, palpitation, dizziness, SOB, lightheadedness, dizziness, diaphoresis, syncopal events. In the ED alcohol level negative, elevated AST 79, ALT 109. BP elevated on admission with 199/142. in the ER Patient was given gabapentin, multivitamin, banana bag, IVF, IV lorazepam. IV labetalol 10mg was given in the ER. Starting on Ativan and gabapentin for alcohol withdrawal protocol. Continue monitor closely for sign of DT and alcohol withdrawal symptoms. MD Estelle (1) Alcohol withdrawal Complication of substance-induced condition: with delirium Qualified Code(s): F10.931 - Alcohol use, unspecified with withdrawal delirium
[2022-07-21] MEDS ORDERED: LABETALOL HCL IV 5 MG/ML 20ML IV STA (11:37)
--- NOTE | 2022-07-21 13:12 | Electrocardiogram Report ---
Test Reason : Blood Pressure : / mmHG Vent. Rate : 080 BPM Atrial Rate : 080 BPM P-R Int : 168 ms QRS Dur : 090 ms QT Int : 386 ms P-R-T Axes : 021 -06 014 degrees QTc Int : 445 ms Normal sinus rhythm Normal ECG When compared with ECG of 24-FEB-2022 20:29, No significant change was found Confirmed by James Lim ([id number]) on 07/21/2022 1:12:00 PM Referred By: Confirmed By:James Lim
[2022-07-21] MEDS ORDERED: ACETAMINOPHEN 325 MG TAB PO PRN (13:36)
[2022-07-21] MEDS: METOPROLOL SUCC 50MG EXT REL TAB PO SCH (14:04)
[2022-07-21] MEDS: GABAPENTIN 600 MG TAB PO SCH ×2 (14:04→20:44)
[2022-07-21 21:54] LABS: Appearance Urine Clear (Clear); Bilirubin Urine Negative (Negative); Blood Urine Negative (Negative); Color Urine Yellow; Glucose Urine UA Negative (Negative); Ketones Urine Negative (Negative); Leukocyte Esterase Urine Negative (Negative); Nitrite Urine Negative (Negative); Protein Urine Negative (Negative); Specific Gravity Urine 1.013 (1.000-1.030); Urobilinogen Urine Negative (Negative); pH Urine 6.5 (4.5-7.5)
[2022-07-22] MEDS: GABAPENTIN 600 MG TAB PO SCH ×2 (05:07→12:44)
[2022-07-22 07:28] LABS: Alanine Aminotransferase 82 U/L (7-52); Albumin Globulin Ratio 1.5 (0.9-2); Albumin Level 3.9 gm/dl (3.4-5.0); Alkaline Phosphatase 33 U/L (34-104); Anion Gap 6 (3-11); Bilirubin,Total 0.8 mg/dl (0.2-1.0); Blood Urea Nitrogen 16 mg/dl (6-23); Calcium 8.6 mg/dl (8.6-10.3); Carbon Dioxide 27 mmol/L (21-32); Chloride 106 mmol/L (98-107); Creatinine Clr Calc Pharmacy 128.2 ml/min; Est GFR (African American) 116.5 ml/min; Est GFR (Non-African American) 100.6 ml/min; Globulin 2.6 gm/dl (2.5-4.0); Glucose 90 mg/dl (70-99(Fasting)); Sodium 139 mmol/L (136-145); Total Protein 6.5 gm/dl (6.0-8.3)
[2022-07-22 07:31] LABS: Hematocrit (blood only) 40.3 % (42.0-52.0); Hemoglobin 14.6 g/dl (14.0-18.0); Mean Corpuscular Hemoglobin 31.9 pg (25.0-34.0); Mean Corpuscular Hgb Conc 36.2 g/dL (32.0-36.0); Mean Corpuscular Volume 88.2 fL (80.0-100.0); Mean Platelet Volume 10.1 fL (9.4-12.4); Platelet Count 214 K/uL (130-400); RDW Coefficient of Variation 11.5 % (11.5-14.5); RDW Standard Deviation 36.6 fL (36.4-46.3); Red Blood Count 4.57 M/uL (4.70-6.10); White Blood Count 6.77 K/ul (4.8-10.8)
[2022-07-22] MEDS: METOPROLOL SUCC 50MG EXT REL TAB PO SCH (08:06)
[2022-07-22] MEDS ORDERED: LORazepam 2 MG/1 ML VIAL IV PRN (08:35)
--- NOTE | 2022-07-22 08:35 | Hospitalist Progress Note ---
Date of Service July 22, 2022 Assessment & Plan (1) Alcohol withdrawal: Plan: Admit to [facility] with telemetry Patient presenting from home with reports of alcohol withdrawal symptoms. Admitted 04/2022 for alcohol withdrawal. Patient reports remaining sober for ab out 6 weeks. Started with drinking a few beers and quickly increased to drinking 20 beers per day. Patient attempted to cut down on his drinking over the past week by a few beers per day. Drink 10 beers yesterday. Alcohol withdrawal protocol with gabapentin and as needed Ativan Thiamine, folic acid, multivitamin Patient wishes to establish with outpatient rehab program and AA at discharge. (2) Hypertensive urgency: Plan: Presenting BP 185/131 Likely secondary to alcohol withdrawal Patient discharged on amlodipine and metoprolol after admission in April. Patient reports he stopped taking both medications about 2 weeks after discharge. Reports BP normalized. No improvement in BP after IV hydralazine 10 mg. Will give labetalol IV 10 mg and amlodipine 5 mg p.o. Resume metoprolol pending heart rate response to labetalol. (3) Elevated LFTs: Plan: T. bili 0.8, AST 79, ALT 109 Due to chronic alcohol use Follow LFTs DVT PROPHYLAXIS SCDs Patient seen in collaboration with Dr. Mccabe I spent a total of 75 minutes coordinating, documenting, and providing care for this patient excluding time spent in the performance of separately billed services. This included personally reviewing all current laboratories and imaging studies, medication reconciliation, outpatient chart review, and discussion with specialists. Admission and Anticipated Discharge Date Admission Date: July 21, 2022 Results & Data Results & Data Vital Signs (Past 12 Hours) Vital Signs Temp Pulse Pulse Resp BP Pulse Ox O2 Del Method 07/22/22 07:09 36.4 C L 73 16 140/91 96 Room Air 07/22/22 02:57 36.5 C 76 16 125/81 97 Room Air 07/21/22 23:01 95 H 07/21/22 23:16 36.7 C 79 16 149/98 H 99 Room Air 07/21/22 21:20 Room Air Laboratory Results Short CBC 07/21/22 07/22/22 Range/Units 08:25 06:06 WBC 5.98 6.77 (4.8-10.8) K/ul Hgb 16.9 14.6 (14.0-18.0) g/dl Hct 45.4 40.3 L (42.0-52.0) % Plt Count 254 214 (130-400) K/uL BMP 07/21/22 07/22/22 07/22/22 08:25 06:06 07:39 Sodium 139 139 Potassium 4.6 TNP 4.0 Chloride 104 106 Carbon Dioxide 29 27 BUN 15 16 Creatinine 0.95 1.00 Glucose 72 90 Calcium 9.5 8.6 Liver Function 07/21/22 07/22/22 07/22/22 Range/Units 08:25 06:06 07:39 Total Bilirubin 0.8 0.8 (0.2-1.0) mg/dl AST 79 H TNP 59 H (13-39) U/L ALT 109 H 82 H (7-52) U/L Alkaline Phosphatase 38 33 L (34-104) U/L Albumin 4.9 3.9 (3.4-5.0) gm/dl Urine 07/21/22 Range/Units Unknown Urine Color Yellow Urine Appearance Clear (Clear) Urine pH 6.5 (4.5-7.5) Ur Specific [place] 1.013 (1.000-1.030) Urine Protein Negative (Negative) Urine Glucose (UA) Negative (Negative) Medications Administered Current Inpatient Medications Acetaminophen (Acetaminophen 325 Mg Tab) 650 mg PO Q4H PRN PRN Reason: pain/fever Stop: 08/20/22 13:35 Amlodipine Besylate (Amlodipine Besylate 5 Mg Tab) 10 mg PO DAILY CHRISTINA Stop: 08/21/22 08:59 Last Admin: 07/22/22 08:06 Dose: 10 mg Folic Acid (Folic Acid 1 Mg Tab) 1 mg PO QAM CHRISTINA Stop: 08/21/22 08:59 Last Admin: 07/22/22 08:07 Dose: 1 mg Gabapentin (Gabapentin 600 Mg Tab) 600 mg PO Q24H CHRISTINA Stop: 07/24/22 20:46 Gabapentin (Gabapentin 600 Mg Tab) 600 mg PO Q12H CHRISTINA Stop: 07/23/22 20:46 Gabapentin (Gabapentin 600 Mg Tab) 600 mg PO Q8H CHRISTINA Stop: 07/22/22 20:46 Last Admin: 07/22/22 05:07 Dose: 600 mg Lorazepam (Lorazepam 2 Mg/1 Ml Vial) 1 mg IV UD PRN; Protocol PRN Reason: EtOH Withdrawal AWSS Score 6+ Stop: 08/20/22 07:57 Metoprolol Succinate (Metoprolol Succ 50mg Ext Rel Tab) 50 mg PO [facility] Stop: 08/20/22 13:35 Last Admin: 07/22/22 08:06 Dose: 50 mg Thiamine HCl (Thiamine Hcl 100 Mg Tab) 100 mg PO [facility] Stop: 08/21/22 08:59 Last Admin: 07/22/22 08:07 Dose: 100 mg (1) Alcohol withdrawal Complication of substance-induced condition: with delirium Qualified Code(s): F10.931 - Alcohol use, unspecified with withdrawal delirium
[2022-07-22] MEDS ORDERED: THIAMINE HCL 100 MG TAB PO SCH (09:00)
[2022-07-22] MEDS ORDERED: amLODIPine BESYLATE 5 MG TAB PO SCH ×2 (09:00)
[2022-07-22] MEDS ORDERED: FOLIC ACID 1 MG TAB PO SCH (09:00)
--- NOTE | 2022-07-22 14:08 | Discharge Summary ---
Discharge Summary Date of Service July 22, 2022 Admission HPI Per Admitting Provider 31-year-old male with PMH alcohol abuse, HTN, and other problems listed below who presents to the ED for evaluation of alcohol withdrawal. History obtained from patient and review of outpatient PCP records. Patient admitted 04/2022 for alcohol withdrawal. Patient reports remaining sober until 1 month ago. Patient reports he started drinking a few beers and quickly increased to drinking 20 beers per day. Patient reports trying to cut down by a couple of beers per day over the past week. Last night, patient reports he started to feel very anxious, tremulous, flushed, visual hallucinations. Over the past 2 days, he has also had some nausea and vomiting. Denies hematemesis and coffee-ground emesis. No chest pain or shortness of breath. Denies lightheadedness, dizziness, diaphoresis, syncopal events. No other recent illnesses, fevers, chills. Patient denies urinary symptoms. Previously on amlodipine and metoprolol for HTN however patient reports he stopped taking these after being sober for 2 weeks as his blood pressure improved. In the ED, patient is found to be significantly hypertensive with BP 185/131. Labs show elevated AST 79, ALT 109. Alcohol level negative. Patient was given gabapentin, multivitamin, banana bag, IVF, IV lorazepam. Principal Dx & Hospital Course #1 = Principal Diagnosis (1) Alcohol withdrawal: (2) Hypertensive urgency: (3) Elevated LFTs: Updated Medication List Medication Instructions Recorded Confirmed Type amlodipine 5 mg tablet 5 mg PO DAILY #30 tabs 07/22/22 Rx chlordiazepoxide HCl 25 mg capsule 25 mg PO .taper as directed #25 07/22/22 Rx caps folic acid 1 mg tablet 1 mg PO QAM #30 tabs 07/22/22 Rx metoprolol succinate 50 mg 50 mg PO QAM #30 tabs 07/22/22 Rx tablet,extended release 24 hr thiamine HCl (vitamin B1) 100 mg 100 mg PO QAM #30 tabs 07/22/22 Rx tablet Hospital Stay Data Consultations 07/21/22 09:23 ED Decision to Admit Stat Pending Results Patient Have Any Pending Studies at Discharge: No Discharge Instructions Given to Patient (Per Discharging Provider) Please take all medications as instructed on discharge list below. You are being given a drug called Librium which will help prevent withdrawal symptoms at home. Please taper this medication as instructed below. Take 50mg every 6 to 12 hours as needed on Day 1, then take 25mg every 6 hours as needed on days 2-5. Please follow-up with your primary care physician within one week of discharge from the hospital to discuss staying sober. Naltrexone tables or Vivitrol injections may be helpful as well as counseling efforts. You are being given two blood pressure medications to help with elevated blood pressure readings we may see as a result of alcohol withdrawal. These will likely be short term. Please work with your primary care physician on how to adjust these medications. It was a pleasure taking care of you! Please call if you have any questions or problems. You can reach a [facility] hospitalist on duty at [facility] 24 hours a day by calling [phone]. Take care of yourself. Jeannine Gallegos, DO [facility]
[2022-07-23] MEDS ORDERED: GABAPENTIN 600 MG TAB PO SCH (08:45)
[2022-07-24] MEDS ORDERED: GABAPENTIN 600 MG TAB PO SCH (20:45)
== END 2022-07-22 17:00 | disposition home or self-care (01) | DRG 897 ==
LOC: ED 07:48 → EDINP 09:38 → SUATTDRO 09:38 → EDINP 13:35 → 2N 16:53